=== PATIENT | male | born 1950 | race African-American/Black ===

== ENCOUNTER 2017-06-30 13:45 | Emergency (ER) | payer MEDICAID, OTHER ==
[~2017-06-30] VITALS: Ht 193 cm; Wt 64.0 kg
[2017-06-30 14:42] VITALS: BP 129/75
== END 2017-06-30 19:00 | disposition left against medical advice (07) ==
LOC: ER 14:47
DX: Z53.21 Procedure and treatment not carried out due to patient leaving prior to being seen by health care provider (principal)

== ENCOUNTER 2017-07-01 05:12 | Emergency (ER) | payer MEDICAID ==
[~2017-07-01] VITALS: Ht 177.8 cm; Wt 67.4 kg
[2017-07-01] MEDS ORDERED: IBUPROFEN 400MG TABLET PO ONE (10:15)
[2017-07-01] MEDS ORDERED: ACETAMINOPHEN 325MG TABLET PO ONE (10:15)
[2017-07-01] MEDS ORDERED: HYDROCODONE/ACETAMINOPHEN 5/325MG TABLET PO ONE (13:00)
[2017-07-01] MEDS ORDERED: ONDANSETRON 4MG ODT PO ONE (15:15)
[2017-07-01 16:30] VITALS: BP 167/85
== END 2017-07-01 16:55 | disposition short-term general hospital (02) ==
LOC: ER 05:12
DX: S05.90XA Unspecified injury of unspecified eye and orbit, initial encounter (principal); H54.61 Unqualified visual loss, right eye, normal vision left eye; R58 Hemorrhage, not elsewhere classified; J32.9 Chronic sinusitis, unspecified; F12.10 Cannabis abuse, uncomplicated; F17.210 Nicotine dependence, cigarettes, uncomplicated; W18.39XA Other fall on same level, initial encounter; Y93.89 Activity, other specified; Y92.89 Other specified places as the place of occurrence of the external cause
CPT/HCPCS: 70450; 70486; 72125; 73562; 99285; Q0162; X7700; Z7610

== ENCOUNTER 2019-08-20 12:26 | Emergency (ER) | payer MEDICARE, MEDICAID ==
[~2019-08-20] VITALS: Ht 182.9 cm; Wt 80.0 kg
[2019-08-20 12:28] VITALS: BP 143/55
[2019-08-20] MEDS ORDERED: BACITRACIN ZINC OINT UDPKT TOP ONE (14:30)
== END 2019-08-20 14:37 | disposition home or self-care (01) ==
LOC: ER 12:26
DX: S80.211A Abrasion, right knee, initial encounter (principal); F12.10 Cannabis abuse, uncomplicated; X58.XXXA Exposure to other specified factors, initial encounter; Y93.89 Activity, other specified; Y92.89 Other specified places as the place of occurrence of the external cause; Y99.8 Other external cause status
CPT/HCPCS: 99283